=== PATIENT | female | born 1985 | race Caucasian/White ===

== ENCOUNTER → 2023-05-16 17:37 | Outpatient (CLI) | payer OTHER, SELFPAY ==
[2023-05-16 18:05] LABS: Add Manual Diff / Slide Review NO; Basophils Absolute Auto 100 /uL (0-100); Basophils Percent Auto 0.9 % (0-2); Eosinophils Absolute Auto 100 /uL (0-450); Eosinophils Percent Auto 0.8 % (2-4); Hematocrit 37.3 % (36-46); Hemoglobin 12.7 g/dL (12.0-16.0); Lymphocytes Absolute Auto 2700 /uL (1100-4500); Lymphocytes Percent Auto 31.7 % (25-40); Mean Corpuscular HGB Conc 34.1 % (30-36); Mean Corpuscular Hemoglobin 31.1 PG (26-34); Mean Corpuscular Volume 91.3 fL (80-100); Monocytes Absolute Auto 700 /uL (0-900); Monocytes Percent Auto 8.4 % (3-14); Neutrophils Absolute Auto 4900 /uL (1500-7000); Neutrophils Percent Auto 58.2 % (50-75); Platelet Count 252 X10^3/uL (150-400); Red Blood Cell Count 4.08 X10^6/uL (4.0-5.2); Red Cell Distribution Width 13.4 % (11.6-14.8); White Blood Cell Count 8.4 X10^3/uL (4.5-11.0)
[2023-05-16 18:12] LABS: Appearance Urine UA CLEAR; Bilirubin Urine UA NEGATIVE (NEGATIVE); Color Urine UA YELLOW; Glucose Urine UA NEGATIVE (Negative); Ketones Urine UA TRACE (NEGATIVE); Leukocyte Esterase Urine UA NEGATIVE (NEGATIVE); Nitrite Urine UA NEGATIVE (Negative); Occult Blood Urine UA NEGATIVE (Negative); Protein Urine UA NEGATIVE (Negative); Urobilinogen Urine UA 0.2 E.U./dL (0.2)
[2023-05-17 09:09] LABS: RPR Screen Non Reactive (Non Reactive); Varicella IgG Antibody 1062 index (Immune >165)
[2023-05-18 19:20] LABS: Hepatitis B Surface Antigen NEGATIVE s/c (NEGATIVE); Rubella Antibody IgG 62.5 IU/mL (>15)
[2023-05-18 19:36] LABS: HIV 1 & 2 Ab/Ag 4th Gen Combo NEGATIVE (NEGATIVE); Hep C Virus Ab w/Reflex Quant NEGATIVE s/c (NEGATIVE)
== END ==
PROVIDERS: Family Medicine; Family Provider Nurse Practitioner; Referring Provider Family Medicine; Visit Provider Family Medicine
DX: O09.511 Supervision of elderly primigravida, first trimester (principal)
CPT/HCPCS: 36415; 80055; 81003; 86787; 86803; 86850; 86900; 86901; 87086; 87389

== ENCOUNTER → 2023-11-03 15:45 | Outpatient (CLI) | payer OTHER, SELFPAY ==
--- NOTE | 2023-11-03 | DI.US.S_ITS ---
PROCEDURE: US OB LIMITED INDICATIONS: SMALL FOR GESTATIONAL AGE CLINICALLY OUTSIDE/PRIOR DATING DATA: Last menstrual period (LMP): February 18, 2023. LMP-based estimated date of delivery (EDILBERTO): November 25, 2023. First dating scan (date and location): November 03, 2023. Estimated date of delivery (EDILBERTO) from first dating scan: December 02, 2023. TECHNIQUE: Real-time scanning was performed of the fetus, with image documentation and biometric measurements. Endovaginal scanning: Not performed COMPARISON: None. FINDINGS: General: A single living intrauterine gestation is present. Presentation: Vertex. Placenta: Placental position is posterior , without previa. Amniotic fluid index: 10.4 cm, normal range is 5-24 cm. Single deepest vertical pocket is 2.9 cm. heart rate: 119 beats per minute. Maternal cervical canal: Not evaluated biometrics: Biparietal diameter: 8.8 cm, 35 weeks 4 days Head circumference: 31.9 cm, 36 weeks 0 days Abdominal circumference: 30.6 cm, 34 weeks 4 days Femur length: 7.3 cm, 37 weeks 1 day Clinically estimated gestational age: 36 weeks 6 days Composite gestational age from present scan: 35 weeks 6 days Estimated weight and percentile: 2694 g, 21% . Umbilical artery Doppler: 1.9 mid/2.1 cord insertion/2.2 placental IMPRESSION: 1. Single live intrauterine gestation with a composite gestational age of 35 weeks, 6 days which is concordant with dates by initial scan. 2. Estimated weight percentile of 21%. 3. Umbilical artery Doppler ratios within normal limits for age. We strive to produce accurate, complete, and clear reports of imaging services. To assist us in improving patient care, this report was composed using standard report templates and voice recognition software. Therefore, it may contain abnormal punctuation, insertions and/or omissions. Occasional wrong-word or sound-alike substitutions may occur. Though we review the report and make efforts to correct it, we do recommend that the report be read carefully in proper context to recognize any text inaccuracies. Dictated by: Jennifer Sinclair M.D. on 11/04/2023 at 9:33 Approved by: Jennifer Sinclair M.D. on 11/04/2023 at 9:35
== END ==
PROVIDERS: Family Provider Nurse Practitioner; Referring Provider Advanced Practice Midwife; Visit Provider Advanced Practice Midwife
DX: Z36.4 Encounter for antenatal screening for fetal growth retardation (principal); Z3A.35 35 weeks gestation of pregnancy
CPT/HCPCS: 76815

== ENCOUNTER 2023-12-07 21:53 | Inpatient (IN) | payer OTHER, SELFPAY ==
--- NOTE | 2023-12-07 22:32 | PM.OBHP.1 ---
OB HPI Date/Time Date of admission: 12/07/23 Date Patient Seen: 12/07/23 Time Patient Seen: 22:32 History of Present Condition Chief complaint: labor : 1 Para: 0 Estimated Date of Delivery: 11/25/23 Estimated Gestational Age (weeks): 41w5d Narrative: Donita Cardoso is a 38 year old female who is 41w5d by LMP and confirmed by 9 week ultrasound. She has been laboring all day, and finally wanted to come to L&D for a labor check. Working hard with contractions. Having some nausea and back pain. Normal care started with with Dr. Jimenes and transferred care to [facility] at 22 weeks. All care was uncomplicated. She desires an unmedicated . Donita is here with her , Allen and their ict business development manager, Jennifer. History of Present care: good care, initiated at week # (12), number of visits (12) and pounds weight gain (33) Dating criteria: LMP confirmed by 1st trimester US Ultrasounds: normal 1st trimester US and normal mid trimester US Obstetrical complications: none Medical complications: none Preadmission Labs Blood type: O (+) positive -: Antibody screen: negative, Cystic fibrosis screen: unknown, GBS status: negative, HBsAG: negative, HIV: negative, HSV 1: unknown, HSV 2: unknown and RPR/VDLR: negative -: Rubella: immune and Varicella: immune HCT: 34 HCAB: negative PAP: Normal Cell-free DNA: Normal, XX 1 hr GTT: 136 Prior (ies) History: None Evaluation Evaluation Baseline heart rate: 130 Variability: Moderate (11-25) monitor accelerations: Present Monitor Decelerations: Absent Contraction Frequency (minutes): 3 (2-3) Uterine Contraction Intensity: Strong/Firm Status: Category l PFSH Medical History Anxiety (~2005) Chicken pox (~1989) Abnormal Pap smear of cervix (~2007) Psoriasis (~2007) Squamous cell carcinoma (~2022) Surgical History Anesthesia Bone spur (~2018) History of dental surgery History of appendectomy (~1995) History of knee surgery Family History Mother Breast cancer Varicose veins of both lower extremities Father Scoliosis Spinal fracture Finger amputation, traumatic Sister Obsessive compulsive disorder Brother Substance abuse Grandfather Heart attack Grandmother Alzheimer disease Grandfather Fall Grandmother Pneumonia Social History marital status: number of children: 0 household members: spouse lives independently: Yes caregiver/support person: No housing: house pets and animals: Yes (1 small dog) education level: master's degree (special education) occupational status: employed 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) special shun needs: No travel history: recent (domestic only) seatbelt use: always helmet use: Yes water heater temp set < 120 deg: Yes working smoke detector in home: Yes fire extinguisher in home: Yes carbon monox detector in home: Yes firearms in home: Yes firearms unloaded and locked: Yes do you feel safe at home: Yes Smoking Status: Never smoker second hand exposure: No alcohol intake: never (not for the last 4 years) substance use type: marijuana (not recently) during the past year weight has: remained stable well-balanced diet: daily or most days daily servings fruits/ve or more times/day caffeine: Yes (aware of ) Type(s) of exercise: bicycling and other (hiking) frequency: 3-4 times per week Meds Home Medications and Allergies Home Medications Medication Instructions Recorded Confirmed Type vitamin-ferrous sulfate tab PO 04/16/23 07/11/23 History 27 mg iron-folic acid 0.8 mg tablet aspirin 81 mg chewable tablet 81 mg PO DAILY #90 tabs 06/13/23 07/11/23 Rx Allergies Allergy/AdvReac Type Severity Reaction Status Date / Time Sulfa (Sulfonamide Allergy Unknown RASH Unverified 07/11/23 15:40 Antibiotics) [SULFA (SULFONAMIDE ANTIBIOTICS)] Review of Systems Review of Systems Narrative: Negative except as noted in HPI. OB Exam Vital signs Blood Pressure: 126/68 Pulse Rate: 80 Respiratory Rate: 18 Temperature: 97.3 F Resp Effort & Inspection: normal respiratory effort and able to speak in complete sentences Auscultation: clear to auscultation bilaterally Cardio Rate: regular rate Rhythm: regular rhythm Heart Sounds: S1 normal, S2 normal and normal, physiologic split S2 Extremities Lower extremity: Yes normal to inspection Objective Labs 12/07/23 22:35 Assessment and Plan Assessment and Plan Assessment and Plan narrative: at 41w5d Post dates GBS negative Rh positive Active labor FHR Cat 1 Admit to L&D Intermittent monitoring after admission strip to confirm Category 1 Admission labs CE as needed/indicated/desired Zofran PRN for nausea Anticipate
[2023-12-07 22:54] VITALS: BP 126/76
[2023-12-07 22:56] LABS: Add Manual Diff / Slide Review NO; Basophils Absolute Auto 100 /uL (0-100); Basophils Percent Auto 0.7 % (0-2); Eosinophils Absolute Auto 100 /uL (0-450); Eosinophils Percent Auto 0.5 % (2-4); Hematocrit 38.9 % (36-46); Hemoglobin 13.3 g/dL (12.0-16.0); Lymphocytes Absolute Auto 1800 /uL (1100-4500); Lymphocytes Percent Auto 14.5 % (25-40); Mean Corpuscular HGB Conc 34.2 % (30-36); Mean Corpuscular Volume 93.5 fL (80-100); Monocytes Absolute Auto 1200 /uL (0-900); Monocytes Percent Auto 9.2 % (3-14); Neutrophils Absolute Auto 9500 /uL (1500-7000); Neutrophils Percent Auto 75.1 % (50-75); Platelet Count 229 X10^3/uL (150-400); Red Blood Cell Count 4.16 X10^6/uL (4.0-5.2); Red Cell Distribution Width 13.4 % (11.6-14.8); White Blood Cell Count 12.7 X10^3/uL (4.5-11.0)
[2023-12-07 23:01] VITALS: BP 126/68; PULSE 80; RESP 18; TEMP 36.3
[2023-12-07] MEDS: ONDANSETRON 4 MG/2 ML INJ IV (23:03)
--- NOTE | 2023-12-07 23:57 | PM.OBPNLAB ---
Date/Time Date Patient Seen: 12/07/23 Time Patient Seen: 11:45 Pain Control Pain control: tolerating well Comments: VS have not been retaken since admission. Pelvic Exam Dilation (cm): 9 Effacement (%): 90 station: +1 Comments: Anterior lip with mild edema. Possible ROM clear fluid at 2342, minimal fluid Contractions Contraction intensity: Strong/Firm Status Heart Rate Baseline: 130 Comments: Increases noted up to 150 bpm Decreases absent Assessment and Plan Assessment: active labor Plan: continuous present management Comments: at 41w5d Active labor GBS neg Rh pos Possible ROM FHR reassuring by intermittent monitoring Confirm rupture with observation Recommend bath to help reduce anterior lip Anticipate NSVB.
[2023-12-08] MEDS: ONDANSETRON 4 MG/2 ML INJ IV (00:22)
[2023-12-08 01:55] LABS: Urine N gonorrhoeae NOT DETECTED
[2023-12-08 01:59] LABS: Urine Chlamydia NOT DETECTED
--- NOTE | 2023-12-08 02:41 | PM.OBPNLAB ---
Date/Time Date Patient Seen: 12/08/23 Time Patient Seen: 02:42 Pain Control Pain control: tolerating well (but very tired) Comments: Hyacinth feels like pushing with some contractions but getting frustrated and feeling tired. Asks if we can break her water, despite feeling a pop earlier. Wonders what else we can do. VS: 144/65 P: 47 bpm Temp 36.4 C Pelvic Exam Dilation (cm): 6.5 Effacement (%): 100 station: +1 Amniotic membrane status: Ruptured (no bag noted on exam) Comments: Cervix very posterior and lower uterine segment very thin; anterior lip felt earlier likely just vaginal tissue which is now less edematous. Unsure of previous exam. Small amount of bleeding after this exam. Contractions Monitor mode: External (intermittent monitoring) Contraction frequency (min): 2 (2-3) Contraction duration (min): 1 Contraction pattern: Regular Contraction intensity: Strong/Firm Status Heart Rate Baseline: 130 Comments: Increases noted Decreases absent Assessment and Plan Assessment: active labor Plan: continuous present management Comments: at 41w6d Active labor GBS neg Recommend 500 mL IV LR Fentanyl 50 mg now, repeat PRN Recommend rest/sleep. Recheck in 2-3 hours.
[2023-12-08] MEDS: fentaNYL 100 MCG/2 ML INJ IV ×2 (02:50→03:25)
--- NOTE | 2023-12-08 04:49 | PM.AN.REGBLK ---
Regional Block Pre-procedure Procedure: Continuous Lumbar Epidural for L&D Attending OB provider: Mariam José PMH/ROS narrative: 38yo at 41 weeks 6 days in labor requesting epidural. See pre-anesthesia assessment for more details. ASA Class: II Labs: Hct 38.9 % (36-46) 12/07/23 22:35 Plt Count 229 X10^3/uL (150-400) 12/07/23 22:35 Medications: Current Medications Generic Name Dose Route Start Last Admin Trade Name Freq PRN Reason Stop Dose Admin Calcium Carbonate 1,000 mg 12/07/23 22:23 Calcium Carbonate 500 Mg Tab PO Q4HR PRN Dyspepsia Carboprost Tromethamine 250 mcg 12/07/23 22:23 Carboprost 250 Mcg/Ml Ampul IM Q90M PRN Bleeding Diphenhydramine HCl 25 mg 12/08/23 04:47 Diphenhydramine 50 Mg/Ml Vial IV Q10M PRN Pruritis Ephedrine Sulfate 10 mg 12/08/23 04:47 Ephedrine 50 Mg/Ml Vial IV Q5M PRN Blood pressure decrease more than 20% of baseline. Fentanyl 100 mcg 12/08/23 02:38 12/08/23 03:25 Fentanyl 100 Mcg/2 Ml Inj IV 50 mcg Q1H PRN Administration Pain, Severe (7-10) Oxytocin/Lactated Ringer's 30 unit in 500 mls @ 200 mls/hr 12/07/23 22:23 Oxytocin Premix IV CONT PRN Bleeding Protocol Tranexamic Acid 1,000 mg/ 100 mls @ 200 mls/hr 12/07/23 22:23 Sodium Chloride IV NOW PRN Bleeding Lactated Ringer's 1,000 mls @ 100 mls/hr 12/07/23 22:30 Lactated Ringers IV CONT EDNA FENT 2MCG/ML BUPIV 0.125% EPI 200 mcg in 100 mls @ 6 mls/hr 12/08/23 05:00 Fentanyl/Bupiv/Ns 2mcg/Ml - 0.125% EPIDURAL CONT EDNA Lidocaine HCl 20 ml 12/07/23 22:23 Lidocaine 1% 20 Ml INJ INTRA-OP PRN Post Delivery Methylergonovine Maleate 0.2 mg 12/07/23 22:23 Methylergonovine 0.2 Mg Tablet PO Q6HR PRN Heavy Bleeding Methylergonovine Maleate 0.2 mg 12/07/23 22:23 Methylergonovine 0.2 Mg/Ml Vial IM NOW PRN Bleeding Misoprostol 800 mcg 12/07/23 22:23 Misoprostol 200 Mcg Tablet PA NOW PRN Bleeding Misoprostol 400 mcg 12/07/23 22:23 Misoprostol 200 Mcg Tablet SL NOW PRN Bleeding Nalbuphine HCl 2.5 mg 12/08/23 04:47 Nalbuphine 20 Mg/Ml Ampul IV Q10M PRN Pruritis Naloxone HCl 0.2 mg 12/07/23 22:23 Naloxone 0.4 Mg/Ml Vial IV Q2MIN PRN Opiate Reversal Ondansetron HCl 4 mg 12/07/23 22:23 12/07/23 23:03 Ondansetron 4 Mg/2 Ml Inj IV 4 mg Q4HR PRN Administration Nausea And Vomiting Ondansetron HCl 4 mg 12/08/23 00:02 12/08/23 00:22 Ondansetron 4 Mg/2 Ml Inj IV 4 mg Q6H PRN Administration Nausea And Vomiting Oxytocin 10 unit 12/07/23 22:23 Oxytocin 10 Unit/Ml Vial IM NOW PRN Bleeding Allergies: Allergies Allergy/AdvReac Type Severity Reaction Status Date / Time Sulfa (Sulfonamide Allergy Unknown RASH Unverified 07/11/23 15:40 Antibiotics) [SULFA (SULFONAMIDE ANTIBIOTICS)] Procedure Insertion date: 12/08/23 Insertion time: 04:20 Prep/Local: 1% lidocaine (Chloraprep) Interspace: L4-5 Patient position: sitting Needle: 18 gauge Jannet Loss of resistance with: saline RENETTA at (cm): 6 Catheter placed at SKIN (cm): 13 Catheter in SPACE (cm): 7 Insertion: Yes CSF, No Blood, No Paresthesia with insertion, No Paresthesia with injection and No Test dose reaction Initial Medications TEST DOSE time: 04:21 TEST DOSE: 1.5% lidocaine with epinephrine 1:200k (mL): 3 BOLUS DOSE time: 04: BOLUS DOSE (mL): 2 BOLUS DOSE med: other (Lido 1.5% with epi) Infusion INFUSION: 0.125% bupivacaine and with fentanyl 2 mcg/mL Initial rate (mL/hr): 10 Subsequent interventions: CSE placed via Jose Angel 22g needle with +CSF. Intrathecal bolus prior to catheter insertion at :19, spinal Marcaine 0.75% 0.5 ml. Pt tolerated CSE procedure well. Post-procedure Anesthesia date START: 12/08/23 Anesthesia time START: 04:10 Anesthesia date END: 12/08/23 Anesthesia time END: 16:36 Post-procedure Anesthesia Assessment: Yes CV function: HR/BP stable, Yes Resp function: RR/sat/airway adequate, Yes Post-op hydration adequate, Yes Pain control adequate, Yes Nausea & vomiting absent, Yes Temperature > 36 C, Yes Mental status appropriate and No Anesthesia complications
--- NOTE | 2023-12-08 07:38 | PM.OBPNLAB ---
Date/Time Date Patient Seen: 12/08/23 Time Patient Seen: 07:39 Pain Control Pain control: epidural Comments: Feels more rested after sleeping for two hours with epidural. Wants to drink clear fluids and nap through position changes. BP:108/70 HR: 59 Afebrile Pelvic Exam Dilation (cm): 8 Effacement (%): 100 station: -1 Amniotic membrane status: Intact (Bulging bag noted on exam) Comments: AROM with clear and bloody fluid at 0641. Contractions Monitor mode: External (continuous monitoring) Pitocin rate (mU/min): 0 Contraction frequency (min): 6 (5-8) Contraction duration (min): 1 Contraction pattern: Irregular Contraction intensity: Strong/Firm Status status: Category l Heart Rate Baseline: 125 Monitor Accelerations: Present Monitor Decelerations: Absent Monitor Variability: Moderate Assessment and Plan Comments: A: Postdates nullipara Active labor with spaced out contractions Membranes ruptured Effective epidural GBS negative FHR category I P: AROM performed 0641 Augment labor with pitocin per protocol Continue position changes Will reassess as needed in 3-4 hours or when patient feels continuous pressure Anticipate NSVB
[2023-12-08] MEDS: OXYTOCIN PREMIX 30 UNIT/500 ML PLAST..BAG IV (07:54)
[2023-12-08] MEDS: LACTATED RINGERS 1,000 ML 100 ML IV (07:55)
[2023-12-08] MEDS: FENT 2MCG/ML BUPIV 0.125% EPI 200 MCG/100 ML PLAST..BAG 6 MCG EPIDURAL (10:41)
--- NOTE | 2023-12-08 11:50 | P.PNOB_ITS ---
Date/Time Date Patient Seen: 12/08/23 Time Patient Seen: 11:30 Pain Control Pain control: epidural Comments: Hyacinth is mentally preparing to push by listening to hypno-birthing tracks, brushing teeth, and getting in position. and clinical haematologist at bedside for support. BP: 119/68 HR: 57 T: 36.1 C SpO2: 98% Pelvic Exam Dilation (cm): 10 Effacement (%): 100 station: -1 Amniotic membrane status: Ruptured (with meconium staind fluid) Comments: +1 station Contractions Monitor mode: External (continuous monitoring) Pitocin rate (mU/min): 8 Contraction frequency (min): 3 Contraction duration (min): 1 Contraction pattern: Irregular Contraction intensity: Strong/Firm Status status: Category l Heart Rate Baseline: 130 Monitor Accelerations: Absent Monitor Decelerations: Early Monitor Variability: Moderate Assessment and Plan Comments: in 2nd stage labor Post dates at 41w6d GBS neg Meconium stained amniotic fluid FHR Cat 1 Continue increasing pitocin as needed for strong contractions. Start pushing. Anticipate NSVB.
--- NOTE | 2023-12-08 15:37 | PM.OBPNLAB ---
Date/Time Date Patient Seen: 12/08/23 Time Patient Seen: 15:30 Pain Control Pain control: tolerating well and epidural Comments: Hyacinth still in good spirits, feeling strong. Pelvic Exam Dilation (cm): 10 Effacement (%): 100 station: -1 Amniotic membrane status: Ruptured (with meconium staind fluid) Comments: AROM Contractions Date/Time contractions began: 12/07/2023 Monitor mode: External (continuous monitoring) Contraction frequency (min): 2 (2-3) Contraction duration (min): 60 (30-60 seconds) Contraction pattern: Regular Contraction intensity: Strong/Firm Status status: Category ll Heart Rate Baseline: 155 Monitor Accelerations: Absent Monitor Decelerations: Variable Monitor Variability: Moderate Assessment and Plan Comments: in 2nd stage labor Pushing for ~3 hours Post dates at 41w6d GBS neg Meconium stained amniotic fluid FHR Cat II Notified on-call OB of time in 2nd stage labor Continue increasing pitocin as needed for strong contractions Continue pushing. Anticipate NSVB.
[2023-12-08] MEDS: MINERAL OIL 1 EACH ENEMA PR (16:22)
--- NOTE | 2023-12-08 17:50 | PM.OBPRVD ---
Labor & Delivery Delivery date: 12/08/23 Intrapartal Events: Prolonged Active Phase and Prolonged 2nd Stage > 2.5 hours Delivery augmentation: rupture of membranes and pitocin Delivery monitor: external FHT Route of delivery: L&D Laceration Description: Vaginal - 1st Degree Delivery repair: vicryl (3-0) Estimated blood loss (mL): 150 Quantitative Blood Loss: 150 Anesthesia Type: Epidural Complications: Prolonged labor. Prolonged second stage. Narrative: Labor progressed well. Hyacinth felt the spontaneous urge to push at 1143 and pushed effectively for a long 2nd stage of 4 hours 53 minutes. FHR was category I and II throughout 2nd stage. Baby was persistently DAMIEN. Manual rotation was attempted twice and successful the second time shortly prior to delivery. head was delivered in OA position at 1636 and immediately restituted to DAMIEN. Nuchal hand noted wrapped across the body and delivered with anterior shoulder. Baby was placed on maternal abdomen when Hyacinth was ready to receive her. Apgars 8,9. They remained skin to skin while cord was cut and placenta was delivered. Placenta delivered spontaneously with maternal efforts and appeared to be intact. 3 vessel cord clamped and cut by 5 minutes of life after cord pulsing had stopped. Cord blood collected for blood typing. Perineum inspected and found to be intact with a first degree sulcal tear repaired with 3-0 vicryl with a figure-8. Shallow periurethral lacerations noted bilaterally. Blood loss measured and estimated loss is 150 mL. IV pitocin was used for active management of third stage of labor. Mom and baby left stable and is being initiated. Allen and Hyacinth are thrilled to meet their baby girl, Mare Giron. Mariam THOMPSON, CNM, IBCLC Baby 1: Infant gender: Female Presentation: vertex Position: Left Occiput Anterior Placenta delivery description: Spontaneous Cord Vessel Description: 3 Vessels and Nuchal Cord score (1 min): 8 score (5 min): 9 weight: 3390 kg Plan for aftercare: Routine care
[2023-12-08] MEDS: KETOROLAC 30 MG/ML VIAL IV (17:57)
[2023-12-08] MEDS: IBUPROFEN 600 MG TABLET PO (23:48)
[2023-12-08] MEDS: ACETAMINOPHEN 325 MG TABLET 650 MG PO (23:48)
[2023-12-09] MEDS: IBUPROFEN 600 MG TABLET PO ×2 (06:01→13:21)
[2023-12-09] MEDS: ACETAMINOPHEN 325 MG TABLET 650 MG PO ×2 (06:01→13:20)
--- NOTE | 2023-12-09 13:25 | PM.OBDS.1 ---
Discharge Providers Provider Date of admission: 12/07/23 21:53 Discharge Date: 12/09/23 Primary care physician: Mariam José CNM, ARNP Consults: 12/07/23 22:23 Consult to Anesthesiology Urgent Comment: Consulting Provider: Anesthesiologist Reason for consultation: Epidural 12/08/23 02:39 Consult to Anesthesiology Urgent Comment: Consulting Provider: Anesthesiologist Reason for consultation: Epidural 12/09/23 17:23 Consult to Color Developer Routine Comment: Discharge provider: Mariam José CNM, ARNP Summary Time Spent with Patient Time attestation: Total time spent providing and/or coordinating discharge services: Objective Labs 12/07/23 22:35 Exam Vital Signs (past 8 hours): BP 108/67 Temp 97.7 F RR 16 Pulse 64 Discharge Plan Discharge Plan Patient Disposition: Home Discharge orders & Medications Prescriptions: Continued vit-ferrous sulfat-FA 27 mg iron- 0.8 mg tablet PO Discontinued aspirin 81 mg tablet,chewable 81 mg PO DAILY Qty: 90 2RF Follow up/Referrals: Mariam José CNM, ARNP [Primary Care Provider] - Visit Report/Discharge Packet Instructions: DI for Hemorrhage Stand Alone Forms: Discharge: Care, Patient Portal/API, Stroke Signs & Symptoms Discharge Data Primary Care Provider: Mariam José
--- NOTE | 2023-12-09 13:45 | P.DS_ITS ---
Discharge Providers Provider Date of admission: 12/07/23 21:53 Discharge Date: 12/09/23 Primary care physician: Mariam José CNM, ARNP Consults: 12/07/23 22:23 Consult to Anesthesiology Urgent Comment: Consulting Provider: Anesthesiologist Reason for consultation: Epidural 12/08/23 02:39 Consult to Anesthesiology Urgent Comment: Consulting Provider: Anesthesiologist Reason for consultation: Epidural 12/09/23 17:23 Consult to Supervisor [employer] Routine Comment: Discharge provider: Mariam José CNM, ARNP Summary Hospital Course Date Patient Seen: 12/09/23 Time Patient Seen: 07:30 Diagnoses: o80 Hospital Course: Donita arrived in early spontaneous labor, progressed slowly to complete, had prolonged 2nd stage, NSVB baby girl with QBL 150 mL. Intact perineum. Normal course. . Peripartum Data Infant Delivery Method: Natural Vaginal Laceration Description: None and Superficial 1: Gender: Female Disposition of : home Discharge Diagnosis (1) Advanced maternal age affecting , antepartum: Status: Acute (2) Encounter for care in third trimester of first : Status: Acute (3) Delivery of : Status: Acute (4) Intact perineum: Status: Acute Status at Discharge Cognitive/behavioral status at discharge: oriented and calm Functional status at discharge: independent ambulation Overall status at discharge: patient is progressing back to baseline Time Spent with Patient Time attestation: Total time spent providing and/or coordinating discharge services: Time spent: Less than 30 minutes Specific discharge activities: discharge teaching Objective Labs 12/07/23 22:35 Exam Other: Fundus firm at U, midline. Lochia scant Perineum intact with minimal edema Discharge Plan Discharge Plan Patient Disposition: Home Discharge orders & Medications Prescriptions: Continued vit-ferrous sulfat-FA 27 mg iron- 0.8 mg tablet PO Discontinued aspirin 81 mg tablet,chewable 81 mg PO DAILY Qty: 90 2RF Follow up/Referrals: Mariam José CNM, ARNP [Primary Care Provider] - Diet/Activity/Treatments Diet: Diet as Tolerated and Regular Diet comment: increase fiber and fluid Activity: low li x 2 weeks Cold/Heat Therapy: as needed Visit Report/Discharge Packet Instructions: DI for Hemorrhage Stand Alone Forms: Discharge: Care, Patient Portal/API, Stroke Signs & Symptoms Discharge Data Primary Care Provider: Mariam José
== END 2023-12-09 14:00 | disposition home or self-care (01) | DRG 807 ==
PROVIDERS: Admitting Provider Advanced Practice Midwife; Family Provider Nurse Practitioner; PCP Advanced Practice Midwife; Referring Provider Advanced Practice Midwife; Visit Provider Advanced Practice Midwife
DX: O48.0 Post-term pregnancy (principal); Z37.0 Single live birth; O63.1 Prolonged second stage (of labor); O76 Abnormality in fetal heart rate and rhythm complicating labor and delivery; Z3A.41 41 weeks gestation of pregnancy; O70.0 First degree perineal laceration during delivery
CPT/HCPCS: 36415; 59050; 85025; 86850; 86900; 86901; 87491; 87591; G0379; J1885; J2405; J2590; J3010